=== PATIENT | male | born 1995 | race Caucasian/White ===

== ENCOUNTER 2018-02-17 13:55 | Day surgery (SDC) | payer BC ==
[~2018-02-17] VITALS: Ht 177.8 cm; Wt 68.2 kg
[~2018-02-17 13:55] MED LIST: NORCO 325 MG-51 TAB PO
[2018-02-17] MEDS ORDERED: PROTONIX 40MG T40 MG PO (14:03)
[2018-02-17 14:32] VITALS: BP 127/85; PULSE 71; TEMP 98.3
[2018-02-17 15:15] VITALS: BP 120/80; PULSE 62; TEMP 97.8
[2018-02-17 15:30] VITALS: BP 119/77; PULSE 64
== END 2018-02-17 16:00 | disposition home or self-care (01) ==
LOC: SDCO 13:55
DX: K59.00 Constipation, unspecified (principal); R10.13 Epigastric pain
CPT/HCPCS: J2250; J3010; J7030

== ENCOUNTER → 2018-02-19 | Outpatient (CLI) | payer BC ==
[~2018-02-19] MED LIST changes: +PROTONIX 40MG T40 MG PO
== END ==
LOC: COL.RAD 12:29
DX: R10.9 Unspecified abdominal pain (principal); R74.0 Nonspecific elevation of levels of transaminase and lactic acid dehydrogenase [LDH]; R79.89 Other specified abnormal findings of blood chemistry